=== PATIENT | female | born 1985 | race African-American/Black ===

== ENCOUNTER 2019-02-22 06:50 | Day surgery (SDC) | payer OTHER ==
[2019-02-22] MEDS ORDERED: SOD CHLORIDE 0.9% 1,000 ML IV (07:00)
[2019-02-22] MEDS ORDERED: CEFAZOLIN 2 GM/50 ML (PMX) 50 ML IVPB (07:00)
[2019-02-22 07:49] LABS: ADD MAN DIFF? NO
[2019-02-22 07:52] LABS: EOSINOPHILS # 0.1 10^3/ul (0.0-0.5); EOSINOPHILS % 2.9 % (0.0-7.0); HEMATOCRIT 38.3 % (37.0-47.0); HEMOGLOBIN 12.1 g/dl (12.0-16.0); LYMPHOCYTES # 1.3 10^3/ul (0.8-2.9); LYMPHOCYTES % 29.8 % (15.0-51.0); MEAN CORPUSCULAR HEMOGLOBIN 28.8 pg (29.0-33.0); MEAN CORPUSCULAR HGB CONC 31.6 g/dl (32.0-37.0); MEAN CORPUSCULAR VOLUME 91.2 fl (82.0-101.0); MEAN PLATELET VOLUME 11.9 fl (7.4-10.4); MONOCYTE # 0.3 10^3/ul (0.3-0.9); MONOCYTES % 7.4 % (0.0-11.0); NEUTROPHIL # 2.5 10^3/ul (1.6-7.5); NEUTROPHILS % 58.7 % (39.0-77.0); PLATELET COUNT 237 10^3/UL (140-415)
[2019-02-22 07:52] LABS: WHITE BLOOD COUNT 4.2 10^3/ul (4.8-10.8)
[2019-02-22] MEDS ORDERED: ONDANSETRON 4 MG INJ IV (08:00)
[2019-02-22] MEDS ORDERED: PROCHLORPERAZINE 10 MG INJ IV (08:00)
[2019-02-22] MEDS ORDERED: EPHEDrine SULFATE 50 MG/5 ML SYG IV (08:00)
[2019-02-22] MEDS ORDERED: hydrALAzine 20 MG INJ IV (08:00)
[2019-02-22] MEDS ORDERED: FENTAnyl 50 MCG/ML VIAL IV ×3 (08:00)
[2019-02-22] MEDS ORDERED: HYDROmorphONE 1 MG/5 ML IV SYRINGE IV ×3 (08:00)
[2019-02-22] MEDS ORDERED: MEPERIDINE 25 MG INJ IV (08:00)
[2019-02-22] MEDS ORDERED: DIPHENHYDRAMINE 50 MG INJ IV (08:00)
[2019-02-22] MEDS: BUPIVACAINE 0.25% (MPF) 30 ML INJ (08:00)
[2019-02-22] MEDS ORDERED: LABETALOL HCL 20MG INJ IV (08:00)
[2019-02-22] MEDS: TRIAMCINOLONE ACET 40 MG/ML INJ (08:01)
[2019-02-22] MEDS ORDERED: ROCURONIUM 50 MG INJ (08:04)
[2019-02-22] MEDS ORDERED: LIDOCAINE 2% (SDV) 5 ML INJ (08:04)
[2019-02-22] MEDS ORDERED: PROPOFOL 20 ML ×2 (08:04→08:33)
[2019-02-22] MEDS ORDERED: MIDAZOLAM 1 MG/ML 2 ML INJ (08:04)
[2019-02-22] MEDS ORDERED: SUCCINYLCHOLINE CHLORIDE 100 MG/5 ML SYG IV (08:04)
[2019-02-22 08:05] LABS: HOLD TRANSMISSIONS 1
[2019-02-22] MEDS ORDERED: ROPIVACAINE 0.5 % 30 ML VIAL (08:06)
[2019-02-22 08:10] LABS: ANION GAP 11 (5-13); BLOOD UREA NITROGEN 17 mg/dl (7-20); CARBON DIOXIDE 24 mmol/L (21-31); CHLORIDE 106 mmol/L (97-110); CREATININE 0.93 mg/dl (0.44-1.00); Estimated GFR > 60 mL/min (>60); GLUCOSE 104 mg/dl (70-220); POTASSIUM 3.9 mmol/L (3.5-5.1); SODIUM 141 mmol/L (135-144)
[2019-02-22 08:12] LABS: INR 0.71; PROTIME 10.2 Sec (11.9-14.9); PT RATIO 0.8
[2019-02-22 08:13] LABS: PARTIAL THROMBOPLASTIN TIME 27.1 Sec (23.0-35.0)
[2019-02-22] MEDS ORDERED: FENTAnyl 50 MCG/ML VIAL (08:25)
[2019-02-22] MEDS ORDERED: CEFAZOLIN 1 GM INJ (08:41)
[2019-02-22] MEDS ORDERED: ONDANSETRON 4 MG INJ (08:43)
[2019-02-22] MEDS ORDERED: DEXAMETHASONE 4 MG/ML 5 ML INJ (08:43)
[2019-02-22] MEDS ORDERED: SUGAMMADEX SODIUM 200 MG/2 ML VIAL IV ×2 (09:20→09:31)
[2019-02-22] MEDS ORDERED: KETOROLAC 30 MG INJ (09:23)
[2019-02-22] MEDS ORDERED: HYDROCODONE/APAP (5/325) TAB PO (09:30)
[2019-02-22] MEDS: POLYMYXIN/BACITRACIN 1L IRRIG (10:32)
[2019-02-22] MEDS: OXYCODONE/ACETAMINOPHEN (5/325) TAB PO (11:23)
== END 2019-02-22 12:05 | disposition home or self-care (01) ==
LOC: SDS 06:50
DX: K40.30 Unilateral inguinal hernia, with obstruction, without gangrene, not specified as recurrent (principal)
CPT/HCPCS: 14000; 80048; 85025; 85610; 85730; 88307